=== PATIENT | male | born 1955 | race Caucasian/White ===

== ENCOUNTER 2019-11-28 12:58 | Emergency (ER) | payer OTHER, SELFPAY ==
[2019-11-28 13:07] VITALS: BP 146/105; PULSE 85; RESP 16; TEMP 37; O2SAT 98; BMI 31.9
--- NOTE | 2019-11-28 13:18 | ECG_ITS ---
Measurements Intervals [place] Rate: 84 P: 34 IN: 136 QRS: 42 QRSD: 82 T: 37 QT: 336 QTc: 399 SINUS RHYTHM Compared to ECG 06/26/2017 11:53:48 No significant changes Electronically Signed On 11-28-2019 19:59:30 WRECKER DRIVER by Tobi Holt M.D. [email or web address]
[2019-11-28 13:33] LABS: Basophils % 0.5 %; Eosinophils % 0.4 %; Hematocrit 46.2 % (42.0-52.0); Hemoglobin 15.1 g/dL (11.7-16.6); Lymphocytes % 26.4 %; Mean Corpuscular HGB Conc 32.7 g/dL (30.0-36.0); Mean Corpuscular Hemoglobin 28.4 pg (28.0-34.0); Mean Corpuscular Volume 86.8 fL (80-94); Mean Platelet Volume 9.4 fL (7.4-10.4); Monocytes # 0.5 10^3/uL (0.2-0.9); Monocytes % 7.1 %; Neutrophils # 4.9 10^3/uL (1.8-7.7); Neutrophils % 65.3 %; Nucleated Red Blood Cells % 0 %; Platelet Count 205 10^3/cmm (130-400); Red Blood Count 5.32 10^6/uL (4.1-5.3); Red Cell Distribution Width 12.8 % (12.1-15.1); White Blood Count 7.5 10^3/uL (4.0-10.0)
[2019-11-28 13:51] LABS: Urine Appearance Clear (CLEAR); Urine Color Yellow (Yellow); pH Urine 5 (5-7)
[2019-11-28 13:52] LABS: Add Urine Microscopic? YES; Bilirubin Urine Neg (NEGATIVE); Blood Urine 2+ (Negative); Glucose Urine UA Norm (Normal); Ketones Urine Negative (Negative); Leukocyte Esterase Urine Negative (Negative); Nitrate Urine Negative (Negative); Protein Urine Neg (Negative); Urobilinogen Urine Norm (Negative)
[2019-11-28 13:53] LABS: Troponin(5th) Baseline 7 ng/mL (0-15)
[2019-11-28 13:54] LABS: Alanine Aminotransferase 26 U/L (0-41); Alkaline Phosphatase 69 IU/L (40-130); Anion Gap 17.9 (5-19); Aspartate Amino Transferase 20 U/L (0-40); Carbon Dioxide 24 mmol/L (22-29); Chloride 103 mmol/L (98-107); Glucose 109 mg/dL (65-115); Potassium 3.9 mmol/L (3.5-5.1); Sodium 141 mmol/L (136-145); Total Bilirubin 0.5 mg/dL (0.15-1.2)
--- NOTE | 2019-11-28 14:06 | ED_ITS ---
Entered by Chelsea Maldonado, acting as scribe for Katina Parmar MD Nov 28, 2019 12:58 HPI - General Adult General: Chief complaint: General Medical Stated complaint: high blood pressure Time Seen by Provider: 11/28/19 14:03 Source: patient, family and RN notes reviewed Mode of arrival: ambulatory Limitations: no limitations History of Present Illness: HPI narrative: 64 yo male presents to ED with complaints of a rapid heart beat this morning and chest pain. The patient states he went ahead and went to work this morning since his heart rate had slowed down . He said the palpitations began again just before lunch, while at work and he has chest pain just under his L breast. His brother said the patient had an episode this weekend of shortness of breath and pain in his upper L chest. The patient has not had HTN in the past. The patient has had intermittent episodes of palpitations for the last couple of days.The pain is not reproducible. MD complaint: chest pain, palpitations Onset (ago): day(s) (3) Location: chest and left Radiation: non-radiation Severity: moderate Quality: dull Pain Consistency: intermittent Relieving factors: none Exacerbating factors: none Associated symptoms: Reports short of breath; Deny chest pain, dyspnea, headache(s), nausea, rash or vomiting Treatments prior to arrival: none Review of Systems General: Reports: 10 or more systems reviewed and unremarkable except in HPI and below Const: Denies: fever or chills Eyes: Denies: change in vision ENMT: Denies: throat pain Card: Denies: chest pain Resp: Denies: shortness of breath GI: Denies: abdominal pain, nausea, vomiting or change in bowel habits Musc: Denies: muscle weakness Skin/Breast: Denies: rash Neuro: Denies: headache Psych: Denies: hopelessness or suicidal ideation Endo: Denies: excessive urination Wale/Lymph: Denies: easy bruising or easy bleeding All/Imm: Denies: hives PFSH ED PFSH: Statuses (acute, chronic, etc) shown below reflect problem list status as previously entered and may not be historically accurate Family History (Updated 11/28/19 @ 14:14 by Tracee Olivera LPN, RT) Family/Other Cancer Diabetes Hypertension Social History (Updated 11/28/19 @ 14:15 by Tracee Olivera LPN, RT) Smoking and tobacco status: never smoked Second hand smoke exposure: No Alcohol intake: current Alcohol intake frequency: few times a month Lives independently: Yes Marital status: Single Current occupational status: employed Current occupation: [employer] Physical Exam Const: COMMON NORMALS: no apparent distress, average body habitus, oriented x3, no limitations, healthy appearing, alert and well nourished HENMT: COMMON NORMALS: normocephalic, external ears normal and external nose normal HEAD & SCALP: normocephalic NOSE: external nose normal EXTERNAL EAR: Yes external ears normal MOUTH: oral and palatal mucosa normal THROAT: posterior oropharynx normal Eye: COMMON NORMALS: PERRL, EOMs intact bilaterally, conjunctivae normal, no scleral icterus and normal visual berumen by confrontation CONJUNCTIVA: Yes conjunctivae normal PUPIL: Yes PERRL Neck/C-Spine: COMMON NORMALS: full ROM, no lymphadenopathy, supple, no meningeal signs and no JVD CERVICAL SPINE: Yes cervical ROM normal Lymph: LYMPHATIC: no lymphadenopathy noted Chest: COMMONS NORMALS: inspection of chest normal Resp: COMMON NORMALS: normal respiratory effort, no retractions, no use of accessory muscles and clear to auscultation bilaterally AUSCULTATION: clear to auscultation bilaterally Cardio: COMMON NORMALS: no JVD, regular rate, regular rhythm, no gallops, no clicks, no murmurs and no rub RATE: regular rate RHYTHM: regular rhythm GI: COMMON NORMALS: normal to inspection, nondistended, normoactive bowel sounds, soft to palpation and non-tender AUSCULTATION: Yes normoactive bowel sounds PALPATION: Yes soft : COMMON NORMALS: Yes no CVA tenderness BLADDER/KIDNEY EXAM: Yes no CVA tenderness Back/Pelvis: COMMON NORMALS: no CVA tenderness Extremity: COMMON NORMALS: normal to inspection Neuro: COMMON NORMALS: oriented x3 SENSORIUM/ORIENTATION: Yes alert MENINGEAL SIGNS: Yes no meningeal signs SPEECH: speech normal Psych: COMMON NORMALS: mental status grossly normal, thought process normal, cooperative, affect normal, speech normal, activity/motor behavior normal, denies hallucinations, denies homicidal ideation and denies suicidal ideation SPEECH: Yes normal speech THOUGHT PROCESS: normal thought process Skin: NARRATIVE SKIN EXAM: Multiple lipomas diffusely all over his body that are not painful. Course Vital Signs: Vital signs: Vital Signs Temperature 98.6 F 11/28/19 13:07 Pulse Rate 74 11/28/19 15:19 Respiratory Rate 17 11/28/19 15:19 Blood Pressure 140/76 11/28/19 15:19 Pulse Oximetry 98 11/28/19 15:19 MDM - General Adult MDM Narrative: Medical decision making narrative: 1501 blood pressure 140/75 without intervention troponin within normal limits. He has a low heart score is calculated by me at 2. Lab Data: Labs: Lab Results 11/28/19 11/28/19 11/28/19 Range/Units 13:20 13:25 13:25 WBC 7.5 (4.0-10.0) 10^3/ uL RBC 5.32 H (4.1-5.3) 10^6/u L Hgb 15.1 (11.7-16.6) g/dL Hct 46.2 (42.0-52.0) % MCV 86.8 (80-94) fL MCH 28.4 (28.0-34.0) pg MCHC 32.7 (30.0-36.0) g/dL RDW 12.8 (12.1-15.1) % Plt Count 205 (130-400) 10^3/c mm MPV 9.4 (7.4-10.4) fL Neut % (Auto) 65.3 % Lymph % (Auto) 26.4 % Green[place] % (Auto) 7.1 % Eos % (Auto) 0.4 % Baso % (Auto) 0.5 % Neut # (Auto) 4.9 (1.8-7.7) 10^3/u L Lymph # (Auto) 2.0 (0.8-4.8) 10^3/u L Greenwood # (Auto) 0.5 (0.2-0.9) 10^3/u L Eos # (Auto) 0.0 (0.0-0.8) 10^3/u L Baso # (Auto) 0.0 (0.0-0.1) 10^3/u L Nucleated RBC % (a uto) 0 % Nucleated RBCs # 0.0 /100WBC Sodium 141 (136-145) mmol/L Potassium 3.9 (3.5-5.1) mmol/L Chloride 103 (98-107) mmol/L Carbon Dioxide 24 (22-29) mmol/L Anion Gap 17.9 (5-19) BUN 26 H (8-23) mg/dL Creatinine 1.0 (0.7-1.2) mg/dL GFR Calculation 75.7 L (90-130) mL/min Glucose 109 (65-115) mg/dL Calcium 9.7 (8.5-10.5) mg/dL Total Bilirubin 0.5 (0.15-1.2) mg/dL AST 20 (0-40) U/L ALT 26 (0-41) U/L Alkaline Phosphata se 69 (40-130) IU/L Troponin T Baselin e (0-15) ng/mL Total Protein 7.0 (6.6-8.7) g/dL Albumin 5.0 (3.5-5.2) g/dL Globulin 2.0 (1.3-4.6) g/dL Urine Color Yellow (Yellow) Urine Appearance Clear (CLEAR) Urine pH 5 (5-7) Ur Specific Gravit y 1.020 (1.005-1.030) Urine Protein Neg (Negative) Urine Glucose (UA) Norm (Normal) Urine Ketones Negative (Negative) Urine Occult Blood 2+ H (Negative) Urine Nitrate Negative (Negative) Urine Bilirubin Neg (NEGATIVE) Urine Urobilinogen Norm (Negative) mg/dL Ur Leukocyte Kamala ase Negative (Negative) Urine RBC 0-4 H (0-2) /hpf Urine WBC 0-4 H (0-5) /hpf Ur Squamous Epith Cells 0-4 H (0-5) Urine Bacteria Trace (NONE) Urine Mucus 1+ 11/28/19 Range/Units 13:25 WBC (4.0-10.0) 10^3/ uL RBC (4.1-5.3) 10^6/u L Hgb (11.7-16.6) g/dL Hct (42.0-52.0) % MCV (80-94) fL MCH (28.0-34.0) pg MCHC (30.0-36.0) g/dL RDW (12.1-15.1) % Plt Count (130-400) 10^3/c mm MPV (7.4-10.4) fL Neut % (Auto) % Lymph % (Auto) % Greenwood % (Auto) % Eos % (Auto) % Baso % (Auto) % Neut # (Auto) (1.8-7.7) 10^3/u L Lymph # (Auto) (0.8-4.8) 10^3/u L Greenwood # (Auto) (0.2-0.9) 10^3/u L Eos # (Auto) (0.0-0.8) 10^3/u L Baso # (Auto) (0.0-0.1) 10^3/u L Nucleated RBC % (a uto) % Nucleated RBCs # /100WBC Sodium (136-145) mmol/L Potassium (3.5-5.1) mmol/L Chloride (98-107) mmol/L Carbon Dioxide (22-29) mmol/L Anion Gap (5-19) BUN (8-23) mg/dL Creatinine (0.7-1.2) mg/dL GFR Calculation (90-130) mL/min Glucose (65-115) mg/dL Calcium (8.5-10.5) mg/dL Total Bilirubin (0.15-1.2) mg/dL AST (0-40) U/L ALT (0-41) U/L Alkaline Phosphata se (40-130) IU/L Troponin T Baselin e 7 (0-15) ng/mL Total Protein (6.6-8.7) g/dL Albumin (3.5-5.2) g/dL Globulin (1.3-4.6) g/dL Urine Color (Yellow) Urine Appearance (CLEAR) Urine pH (5-7) Ur Specific Gravit y (1.005-1.030) Urine Protein (Negative) Urine Glucose (UA) (Normal) Urine Ketones (Negative) Urine Occult Blood (Negative) Urine Nitrate (Negative) Urine Bilirubin (NEGATIVE) Urine Urobilinogen (Negative) mg/dL Ur Leukocyte Kamala ase (Negative) Urine RBC (0-2) /hpf Urine WBC (0-5) /hpf Ur Squamous Epith Cells (0-5) Urine Bacteria (NONE) Urine Mucus Imaging Data^: CXR: Radiologist's impression: [address] [place] [address] XRay Report Signed Patient: Sanya Mott #: [id number] : 7Acct#:[id number] Age/Sex: 64 / MADM Date: 11/28/19 Loc: ERRoom/Bed: Attending Dr: Ordering Provider/Ordering MD: Katina Parmar MD Date of Service: 11/28/19 Procedure(s): XR chest 1V portable [id number] Accession Number(s): [id number] Report Number: [id number] WS: [id number] Portable AP upright chest, 11/28/2019 Clinical Data: cp Comparison: PA and lateral chest, 08/18/2018. Findings: No nodules, masses or effusions are seen. The heart is normal. The pulmonary vascularity is not increased. No pneumonia or pneumothorax is seen. XR/XR chest 1V portable [id number] Impression: Negative chest. Dictated By:Radha Virgen MD Signed By:Radha Virgen MDSigned Date/Time:11/28/19 1444 DD/ EKG Data^: EKG 1: Attestation: I personally reviewed and interpreted this EKG as follows: EKG interpretation date: 11/28/19 EKG interpretation time: 14:01 Interpretation: Normal sinus rhythm rate [address] elevation Computer generated interpretation: Chest X-Ray 11/28/19 14:19 Impression: Negative chest. Discharge Plan Discharge Patient Disposition: Home, Self-Care Clinical Impression: Chest pain Qualifiers: Chest pain type: unspecified Qualified Code(s): R07.9 - Chest pain, unspecified Condition: Stable Prescriptions: No Action atorvastatin 40 mg tablet 40 mg PO DAILY RF: 0 pantoprazole 40 mg tablet,delayed release (DR/EC) 40 mg PO DAILY RF: 0 Referrals: Tracee Polanco FNP [Primary Care Provider] - Discharge Activity: Resume usual activity Patient Instructions: Chest Pain (ED) Activity Restrictions/Additional Instructions: Call your primary care provider tomorrow for follow-up. Return to the ER if you feel that you have an emergent issue or want to be seen,we are happy to reevaluate you. Stand Alone Forms: Work/School Release Discharge Date/Time: 11/28/19 15:28 Coding Level of Care Code ED Director Of Dance for Chg Fwd Exam Problem Focused The documentation recorded by the ernieibErica donaldson Valerie R, accurately reflects the service I personally performed and the decisions made by me, Katina Parmar MD Nov 28, 2019 12:58
[2019-11-28 14:09] LABS: Blood Urea Nitrogen 26 mg/dL (8-23); Calcium 9.7 mg/dL (8.5-10.5); Glomerular Filtration Rate 75.7 mL/min (90-130)
[2019-11-28 14:10] LABS: Add Urine Culture? No; Bacteria Urine TRACE; Mucus Urine 1+; RBC Urine 0-4 /hpf (0-2); Squamous Epithelial Cell Urine 0-4 (0-5); WBC Urine 0-4 /hpf (0-5)
[2019-11-28 14:19] VITALS: BP 160/99; PULSE 82; O2SAT 98
--- NOTE | 2019-11-28 14:19 | XR_ITS ---
WS: [id number] Portable AP upright chest, 11/28/2019 Clinical Data: cp Comparison: PA and lateral chest, 08/18/2018. Findings: No nodules, masses or effusions are seen. The heart is normal. The pulmonary vascularity is not increased. No pneumonia or pneumothorax is seen. XR/XR chest 1V portable [id number] Impression: Negative chest.
[2019-11-28 14:21] VITALS: O2SAT 97
[2019-11-28] MEDS: aspirin 81 mg Chew Tablet 324 MG PO (14:32)
[2019-11-28 15:19] VITALS: BP 140/76; PULSE 74; RESP 17; O2SAT 98
== END 2019-11-28 15:28 | disposition home or self-care (01) ==
PROVIDERS: Family Medicine; Emergency Provider Emergency Medicine; PCP Nurse Practitioner Family
DX: R07.9 Chest pain, unspecified (principal)
CPT/HCPCS: 36415; 71045; 80053; 81001; 84484; 85025; 93005; 99283; A9270

== ENCOUNTER 2019-12-08 09:08 | Day surgery (SDC) | payer OTHER, SELFPAY ==
[2019-12-07 09:38] VITALS: BMI 31.9
--- NOTE | 2019-12-08 09:15 | W.PM.OPSUD ---
Surgery/Procedure H&P Update DATE OF PROCEDURE: December 08, 2019 DATE H&P PERFORMED: 12/04/19 PLANNED PROCEDURE: Operation Date: 12/08/19 11:00 Proposed Procedures p EGD(Not Applicable) - Harjinder Hampton MD
--- NOTE | 2019-12-08 10:05 | ANES.PREANE2 ---
Pre-Anesthetic Assessment Pre-Anesthetic Assessment: Height/Weight: Height 1.73 m Weight 95.254 kg Preop Diagnosis: abdominal pain Proposed Procedure: Operation Date: 12/08/19 11:00 Proposed Procedures p EGD(Not Applicable) - Harjinder Hampton MD Familial anesthetic complications: None, took atenolol today Was Beta Kojo taken within 24 hours: Yes Last intake: Yesterday at 700 pm Social: Social History: No alcohol and No tobacco Exam: Pre-Anes Outpt Exam: alert, oriented x 3, clear to auscultation bilaterally and regular rate & rhythm Airway: Cervical ROM: WNL MP: 2 Dentition: Caps Additional comments: implant Pulmonary: Pulmonary: SOB Comments: Chronic SOB since 2017 - no diagnosis, currently wearing a heart monitor CV/HEM: CV/HEM: Angina (Stable) (Ruled out heart attack already per patient), HTN and Murmur : : None reported Hepatic: Hepatic: None reported GI: GI: GERD and None reported Metabolic: Metabolic: None reported Musc/skel: Musc/skel: None reported Comments: neck back and shoulder pain Neuropsych: Neuropsych: None reported Anesthetic Plan: ASA status: 2 Anesthesia: MAC PFSH Anesthesia PFSH: Social History (Updated 12/04/19 @ 15:30 by ANNA Uribe) Smoking and tobacco status: never smoked Second hand smoke exposure: No Alcohol intake: current Alcohol intake frequency: few times a month Lives independently: Yes Marital status: Single Current occupational status: employed Current occupation: [employer] History of recent travel: No Data Anesthesia Cardiac Studies: No Data to Display
[2019-12-08 10:29] VITALS: BP 162/93; PULSE 52; RESP 18; TEMP 36.5; O2SAT 99
[2019-12-08] MEDS: sodium chloride 0.9% 1,000 ML 30 ML (10:42)
[2019-12-08 11:36] VITALS: BP 107/70; PULSE 51; RESP 18; O2SAT 99
== END 2019-12-08 11:53 | disposition home or self-care (01) ==
PROVIDERS: PCP Family Medicine; Visit Provider Internal Medicine
PROC: 0DJ08ZZ Inspection of Upper Intestinal Tract, Via Natural or Artificial Opening Endoscopic (ICD-10-PCS; CPT 43235; principal; 2019-12-08 11:00)
DX: K21.9 Gastro-esophageal reflux disease without esophagitis (principal); I10 Essential (primary) hypertension; Z79.82 Long term (current) use of aspirin
CPT/HCPCS: 12345; 43235; J2704; J7030

== ENCOUNTER → 2019-12-11 17:20 | Outpatient (BNVA) | payer OTHER, SELFPAY | PROVIDERS: PCP Family Medicine; Visit Provider Family Medicine | DX: R53.83 Other fatigue (principal); R31.29 Other microscopic hematuria; M25.60 Stiffness of unspecified joint, not elsewhere classified; M79.10 Myalgia, unspecified site | CPT/HCPCS: 82607; 84403; 84443; 85025; 85651; 86618; 86666; 86757 ==

== ENCOUNTER 2019-12-15 07:53 | Outpatient (CLI) | payer OTHER, SELFPAY ==
--- NOTE | 2019-12-15 08:00 | US_ITS ---
WS: [id number] Gallbladder ultrasound, 12/15/2019 Clinical Data: Abdominal bloating and pressure Comparison: None. Findings: The gallbladder shows no sludge or stone. The wall measures 1.8 mm with no pericholecystic fluid. The common bile duct is 4.0 mm and there are no intrahepatic ductal abnormalities. Liver shows no cysts, masses or dilated intrahepatic ducts. There is fatty infiltration. The pancreas is obscured by overlying bowel gas but no cyst, pseudocyst, or evidence of pancreatitis is noted. Right kidney measures 11.0 cm and and there is a cortical cyst measuring 2.14 x 2.59 x 2.65 cm. The aorta and inferior vena cava show no vascular abnormalities. US/US gall bladder [id number] Impression: 1. Negative gallbladder. 2. Fatty infiltration of the liver. 3. Right renal cyst.
== END 2019-12-15 07:54 | disposition home or self-care (01) ==
PROVIDERS: Family Provider Family Medicine; PCP Family Medicine; Visit Provider Internal Medicine
DX: K21.9 Gastro-esophageal reflux disease without esophagitis (principal); K76.0 Fatty (change of) liver, not elsewhere classified; N28.1 Cyst of kidney, acquired
CPT/HCPCS: 76705

== ENCOUNTER 2019-12-29 14:45 | Outpatient (CLI) | payer OTHER, SELFPAY ==
--- NOTE | 2019-12-29 14:54 | CTR_ITS ---
PROCEDURE INFORMATION: Exam: CT Abdomen And Pelvis Without Contrast Exam date and time: 12/29/2019 2:55 PM Age: 64 years old Clinical indication: Abdominal pain; Flank; Other: Both; Additional info: Kidney stone - bilat flank pain x 1 month. TECHNIQUE: Imaging protocol: Computed tomography of the abdomen and pelvis without contrast. Total DLP: 1117.62 mGy-cm Radiation optimization: All CT scans at this facility use at least one of these dose optimization techniques: automated exposure control; mA and/or kV adjustment per patient size (includes targeted exams where dose is matched to clinical indication); or iterative reconstruction. COMPARISON: US gall bladder [id number] 12/15/2019 8:09 AM FINDINGS: Liver: No mass. Gallbladder and bile ducts: Unremarkable. No ductal dilation. Pancreas: Normal. No ductal dilation. Spleen: Normal. No splenomegaly. Adrenals: Normal. No mass. Kidneys and ureters: No calculus or hydronephrosis. Hypodense bilateral renal lesions largest in the left kidney estimated at 4 cm consistent with cysts, no further evaluation needed. Stomach and bowel: No acute findings. No obstruction. No mucosal thickening. Appendix: No evidence of appendicitis. Intraperitoneal space: Unremarkable. No free air. No significant fluid collection. Vasculature: No abdominal aortic aneurysm. Lymph nodes: No significant adenopathy. Bladder: Unremarkable as visualized. Reproductive: Unremarkable as visualized. Bones/joints: No acute findings. L5-S1 degenerative disc disease. Soft tissues: No acute findings. Fat containing right inguinal hernia. CT/CT kidney stone [id number] IMPRESSION: No acute findings. Radiation Dose CTDIVOL = (mGy): DLP = 1117.62 (mGy-cm)
== END 2019-12-29 14:46 | disposition home or self-care (01) ==
LOC: RADWPI 14:49
PROVIDERS: Family Provider Family Medicine; PCP Family Medicine; Visit Provider Family Medicine
DX: N20.0 Calculus of kidney (principal)
CPT/HCPCS: 74176

== ENCOUNTER → 2020-11-11 16:45 | Outpatient (BNVA) | payer OTHER, SELFPAY | PROVIDERS: Family Provider Family Medicine; PCP Family Medicine; Visit Provider Family Medicine | DX: E78.5 Hyperlipidemia, unspecified (principal); I10 Essential (primary) hypertension; E29.1 Testicular hypofunction; M54.2 Cervicalgia; K21.9 Gastro-esophageal reflux disease without esophagitis; Z12.5 Encounter for screening for malignant neoplasm of prostate | CPT/HCPCS: 80053; 80061; 84403; 84443; 85025; G0103 ==

== ENCOUNTER 2020-11-14 15:46 | Outpatient (CLI) | payer OTHER, SELFPAY ==
--- NOTE | 2020-11-14 16:06 | XR_ITS ---
WS: [id number] CERVICAL SPINE 5 VIEWS HISTORY: M54.2 - Cervicalgia COMPARISON: None available. TECHNIQUE: AP, oblique and lateral radiographs. 2 mm retrolisthesis of C3, C4 and C5. There is at least moderate disc space narrowing and degenerativ e changes throughout the cervical spine beginning at the C3-4 level through C7-T1. No fractures. No p revertebral soft tissue swelling. Lateral masses are aligned and the odontoid is intact. Osteophytes extend into the foramina bilaterally throughout the cervical spine causing at least moderate foramina l stenosis. XR/XR cervical spine 4-5V [id number] IMPRESSION: 1. Moderate cervical spondylosis. 2. Moderate degenerative disc disease with bilateral foraminal narrowing from C3-4 through C7-T1.
--- NOTE | 2020-11-14 16:06 | XR_ITS ---
WS: [id number] THORACIC SPINE TECHNIQUE: AP and lateral views are performed. HISTORY: M54.9 - Dorsalgia, unspecified COMPARISON: None available. Mild straightening of the normal thoracic kyphosis. Pedicles are all identified. There is very mild d isc space narrowing and small endplate hypertrophic osteophytes throughout the thoracic spine. No fra cture. No paravertebral soft tissue abnormality. XR/XR thoracic spine 3V* [id number] IMPRESSION: Mild diffuse thoracic spondylosis.
== END 2020-11-14 15:47 | disposition home or self-care (01) ==
LOC: RADWPI 15:51
PROVIDERS: PCP Family Medicine; Visit Provider Family Medicine
DX: M47.814 Spondylosis without myelopathy or radiculopathy, thoracic region (principal); M47.812 Spondylosis without myelopathy or radiculopathy, cervical region; M50.31 Other cervical disc degeneration, high cervical region
CPT/HCPCS: 72050; 72072

== ENCOUNTER 2020-12-24 06:00 | Outpatient (RCR) | payer OTHER, SELFPAY | END 2021-01-15 23:59 | disposition home or self-care (01) | LOC: SPT 06:00 | PROVIDERS: PCP Family Medicine; Referring Provider Family Medicine; Visit Provider Family Medicine | DX: M54.2 Cervicalgia (principal) | CPT/HCPCS: 97110; 97140; 97161 ==

== ENCOUNTER 2021-01-16 06:00 | Outpatient (RCR) | payer OTHER, SELFPAY | END 2021-02-14 23:59 | disposition home or self-care (01) | LOC: SPT 06:00 | PROVIDERS: PCP Family Medicine; Referring Provider Family Medicine; Visit Provider Family Medicine | DX: M54.2 Cervicalgia (principal) | CPT/HCPCS: 97110; 97140 ==

== ENCOUNTER → 2021-03-05 15:52 | Outpatient (BNVA) | payer OTHER, SELFPAY | PROVIDERS: PCP Family Medicine; Visit Provider Family Medicine | DX: E78.5 Hyperlipidemia, unspecified (principal); I10 Essential (primary) hypertension | CPT/HCPCS: 80053; 80061; 85025 ==

== ENCOUNTER → 2021-07-15 17:02 | Outpatient (BNVA) | payer OTHER, SELFPAY | PROVIDERS: PCP Family Medicine; Visit Provider Family Medicine | DX: E78.5 Hyperlipidemia, unspecified (principal); I10 Essential (primary) hypertension; K21.9 Gastro-esophageal reflux disease without esophagitis | CPT/HCPCS: 80053; 80061; 84443; 85025 ==

== ENCOUNTER → 2021-10-14 11:25 | Outpatient (BNVA) | payer OTHER, SELFPAY | PROVIDERS: PCP Family Medicine; Visit Provider Family Medicine | DX: E29.1 Testicular hypofunction (principal); F41.9 Anxiety disorder, unspecified; I10 Essential (primary) hypertension; R00.0 Tachycardia, unspecified; R25.2 Cramp and spasm | CPT/HCPCS: 80053; 80061; 82306; 82607; 83540; 83735; 84403; 84443 ==

== ENCOUNTER → 2021-12-18 10:13 | Outpatient (BNVA) | payer OTHER, SELFPAY | PROVIDERS: PCP Family Medicine; Visit Provider Family Medicine | DX: E55.9 Vitamin D deficiency, unspecified (principal); E78.5 Hyperlipidemia, unspecified; I10 Essential (primary) hypertension | CPT/HCPCS: 80053; 80061; 82306; 85025 ==

== ENCOUNTER → 2022-08-11 15:30 | Outpatient (BNVA) | payer OTHER, SELFPAY | PROVIDERS: PCP Family Medicine; Visit Provider Nurse Practitioner Family | DX: K21.9 Gastro-esophageal reflux disease without esophagitis (principal); I10 Essential (primary) hypertension; E29.1 Testicular hypofunction; Z12.5 Encounter for screening for malignant neoplasm of prostate; R14.0 Abdominal distension (gaseous) | CPT/HCPCS: 80053; 80061; 82607; 83735; 84403; 84443; 85025; 86003; 86008; G0103 ==

== ENCOUNTER 2022-10-13 13:23 | Outpatient (CLI) | payer OTHER, SELFPAY ==
--- NOTE | 2022-10-13 13:45 | USCV_ITS ---
Sanya Mott Age: 67 Gender: M : 1955 Exam Date: 10/13/2022 13:51 Ordering Phys: Tracee Polanco SANDWICH HAND SANDWICH HAND Technologist: CT Exam Location[place] [facility] [place] Indication: stenosis Risk Factors: Previous Vascular Surgery: Right Brachial BP: / Left Brachial BP: / Right Left Velocity (cm/s) Spectral Plaque Velocity (cm/s) Spectral Plaque Syst/Diast Broadening Syst/Diast Broadening 89.10/ 19.70 Prox CCA 70.60 / 20.50 89.10/ 21.60 Mid CCA 74.90 / 20.60 74.10/ 18.80 Distal CCA 83.30 / 21.40 57.30/ 22.80 Prox ICA 60.40 / 19.30 63.10/ 22.20 Mid ICA 54.00 / 19.90 60.50/ 23.60 Distal ICA 48.10 / 14.70 55.20 ECA 62.80 0.71 ICA/CCA 0.73 Antegrade Vertebral Antegrade 36.90/ 12.70 cm/s 60.10/ 20.70 cm/s Tri Subclavian Tri 114.3 143.2 0 0 FINDINGS no stenosis CONCLUSIONS Right ICA stenosis <50%. Mild calcified atheromatous plaque right carotid bulb/ICA. Left ICA stenosis <50%. Normal antegrade Doppler flow noted in the right vertebral artery. Normal antegrade Doppler flow noted in the left vertebral artery. Newton Tavares MD (Electronically Signed) Final Date: 13 October 2022 15:55 S
== END 2022-10-13 13:24 | disposition home or self-care (01) ==
LOC: RAD 13:25
PROVIDERS: PCP Family Medicine; Visit Provider Nurse Practitioner Family
DX: Z86.79 Personal history of other diseases of the circulatory system (principal); I65.23 Occlusion and stenosis of bilateral carotid arteries
CPT/HCPCS: 93880

== ENCOUNTER → 2022-12-29 17:10 | Outpatient (BNVA) | payer OTHER, SELFPAY | PROVIDERS: PCP Family Medicine; Visit Provider Family Medicine | DX: G43.909 Migraine, unspecified, not intractable, without status migrainosus (principal); E55.9 Vitamin D deficiency, unspecified; E78.5 Hyperlipidemia, unspecified; I10 Essential (primary) hypertension | CPT/HCPCS: 80053; 80061; 82306; 84443; 85025 ==

== ENCOUNTER → 2023-08-06 13:04 | Outpatient (BNVA) | payer OTHER, SELFPAY | PROVIDERS: PCP Family Medicine; Visit Provider Family Medicine | DX: E55.9 Vitamin D deficiency, unspecified (principal); E78.5 Hyperlipidemia, unspecified; I10 Essential (primary) hypertension; Z12.5 Encounter for screening for malignant neoplasm of prostate; Z12.11 Encounter for screening for malignant neoplasm of colon | CPT/HCPCS: 80053; 80061; 82306; 84443; 85025; G0103 ==

== ENCOUNTER → 2023-11-24 17:20 | Outpatient (BNVA) | payer OTHER, SELFPAY | PROVIDERS: PCP Family Medicine; Visit Provider Registered Nurse Neonatal Intensive Care | DX: R09.81 Nasal congestion (principal); H66.93 Otitis media, unspecified, bilateral; H10.31 Unspecified acute conjunctivitis, right eye | CPT/HCPCS: 87400 ==

== ENCOUNTER → 2024-05-19 10:53 | Outpatient (BNVA) | payer OTHER, SELFPAY | PROVIDERS: PCP Family Medicine; Visit Provider Family Medicine | DX: I10 Essential (primary) hypertension (principal); E78.5 Hyperlipidemia, unspecified; E55.9 Vitamin D deficiency, unspecified | CPT/HCPCS: 80053; 80061; 82306; 84443; 85025 ==

== ENCOUNTER → 2024-09-06 09:57 | Outpatient (BNVA) | payer OTHER, SELFPAY | PROVIDERS: PCP Family Medicine; Visit Provider Nurse Practitioner Family | DX: I10 Essential (primary) hypertension (principal); E55.9 Vitamin D deficiency, unspecified; G43.909 Migraine, unspecified, not intractable, without status migrainosus; E78.5 Hyperlipidemia, unspecified; Z12.5 Encounter for screening for malignant neoplasm of prostate | CPT/HCPCS: 80053; 80061; 82306; 84443; 85025; G0103 ==

== ENCOUNTER → 2024-09-19 17:01 | Outpatient (BNVA) | payer OTHER, SELFPAY | PROVIDERS: PCP Family Medicine | DX: J02.9 Acute pharyngitis, unspecified (principal) | CPT/HCPCS: 87880 ==

== ENCOUNTER → 2024-11-22 11:29 | Outpatient (BNVA) | payer MEDICARE, SELFPAY | PROVIDERS: PCP Nurse Practitioner Family; Visit Provider Nurse Practitioner Family | DX: R05.9 Cough, unspecified (principal); J10.1 Influenza due to other identified influenza virus with other respiratory manifestations | CPT/HCPCS: 87400 ==

== ENCOUNTER 2025-07-11 12:02 | Outpatient (CLI) | payer MEDICARE, SELFPAY ==
--- NOTE | 2025-07-11 12:19 | MR_ITS ---
WS: [id number] MRI BRAIN WITH AND WITHOUT CONTRAST HISTORY: RECURRENT HEADACHE COMPARISON: 10/07/2017 TECHNIQUE: Multiplanar imaging performed through the brain with MultiHance 20 ml's IV. No acute infarcts are seen. Renae-white matter differentiation is well preserved. Mild cerebral atrophy. Very minimal small vessel changes. Minimal progression of small vessel disease since 2017. No large territory infarct. No hippocampal atrophy. No susceptibility artifacts or prior lacunar infarcts. Ventricles and extra-axial spaces are normal. Clivus and pituitary gland are normal. Visualized posterior fossa and brainstem are also normal. Postcontrast images are negative for masses or vascular malformations. Dural venous sinuses are normal. Paranasal sinuses: Well aerated with no significant disease. Mastoid air cells: Normal. Calvarium and scalp: Normal. MR/MR head wo/w con [id number] IMPRESSION: 1. Normal diffusion imaging. No acute infarct. 2. Mild cerebral atrophy with mild small vessel disease. Minimal progression s stuart 2017. 3. No enhancing masses or vascular malformations. 4. No abnormality at the cerebellopontine angles. 5. No hippocampal atrophy.
[2025-07-11] MEDS: gadobenate dimeglumine 20 mL vial IV (12:56)
== END 2025-07-11 12:03 | disposition home or self-care (01) ==
PROVIDERS: PCP Nurse Practitioner Family; Visit Provider Family Medicine
DX: G31.9 Degenerative disease of nervous system, unspecified (principal); I67.89 Other cerebrovascular disease
CPT/HCPCS: 70553